=== PATIENT | female | born 1970 | race Caucasian/White ===

== ENCOUNTER 2017-04-09 17:32 | Emergency (ER) | payer OTHER ==
[~2017-04-09] VITALS: Ht 162.6 cm; Wt 81.6 kg
[~2017-04-09 17:32] MED LIST: AMOX875T PO; CHOL100013 PO; CLIN150C14 PO; HYDR-2758 PO; HYDR-971 PO
[2017-04-09 18:05] LABS: BASO # 0.1 x10^3/uL (0.0-0.2); BASO % 1 % (0-3); EOS % 2 % (0-3); HEMATOCRIT 42.9 % (36.0-47.0); HEMOGLOBIN 13.9 g/dL (12.0-15.5); LYMPH # 1.9 x10^3/uL (1.0-4.8); LYMPH % 20 % (24-48); MEAN CORPUSCULAR HEMOGLOBIN 29 pg (25-35); MEAN CORPUSCULAR HGB CONC 33 g/dL (31-37); MEAN CORPUSCULAR VOLUME 88 fL (79-100); MONO % 6 % (0-9); NEUT % 72 % (31-73); PLATELET COUNT 306 x10^3/uL (140-400); RED BLOOD COUNT 4.89 x10^6/uL (3.50-5.40); RED CELL DISTRIBUTION WIDTH 13.6 % (11.5-14.5); WHITE BLOOD COUNT 9.5 x10^3/uL (4.0-11.0)
--- NOTE | 2017-04-09 18:10 | ED.ADGEN ---
Past Medical History Past Medical History: Fibromyalgia, Hypothyroid, Other Additional Past Medical Histor: L3-L4 LUMBAR DISC HERNIA,DDD,PERICARDITIS,VIT DEF,PSORATIC ARTHRITIS Past Surgical History: Appendectomy, Cholecystectomy, , Hysterectomy, Knee Replacement, Tonsillectomy, Other Additional Past Surgical Histo: HERNIATED DISC REPAIRED,Dental,BACK,SPINAL STIMULATOR Alcohol Use: None Drug Use: None Adult General Chief Complaint Chief Complaint: CHEST WALL PAIN HPI HPI Patient is a 47 year old occasional female presents with intermittent, left- sided, costal chest pain 2 days. Pain is worse with deep breathing. She denies cough, shortness of breath, nausea or sweats. No fever chills. Eyes back pain or mechanical pain. Reports some diarrhea, denies constipation. No pain or swelling. She denies history of hypertension. She is currently on hormone replacement therapy due to as directed me. She is a nonsmoker. Review of Systems Review of Systems Review symptoms as per history of present illness. All other review symptoms are negative. Allergies Allergies Allergies Coded Allergies Type Severity Reaction Last Updated Verified diphenhydramine Allergy Intermediate AGITATION 09/26/14 Yes ketorolac Allergy Intermediate Hives 09/26/14 Yes NSAIDS (Non-Steroidal Anti-Inflamma Allergy Unknown 09/26/14 Yes midazolam Allergy Unknown 09/26/14 Yes Physical Exam Physical Exam Constitutional: Well developed, well nourished, no acute distress, non-toxic appearance. HENT: Normocephalic, atraumatic, bilateral external ears normal, oropharynx moist, no oral exudates, nose normal. Eyes: PERRLA, EOMI. Neck: Normal range of motion, no tenderness, supple. Cardiovascular:Heart rate regular rhythm, no murmur. Left anterior chest wall pain, no tenderness. Negative Homans signs. Lungs & Thorax: Bilateral breath sounds clear to auscultation. Abdomen: Bowel sounds normal, soft, no tender. Skin: Warm, dry. Back: No tenderness. Extremities: No tenderness. Neurologic: Alert and oriented X 3, normal motor function, normal sensory function, no focal deficits noted. Psychologic: Affect normal, judgement normal, mood normal. Current Patient Data Vital Signs Vital Signs Date Time Temp Pulse Resp B/P (MAP) Pulse Ox O2 Delivery O2 Flow Rate FiO2 04/09/17 19:10 72 15 109/58 (75) 95 Room Air 04/09/17 17:34 97.6 97.6 Lab Values Laboratory Tests Test 04/09/17 17:50 White Blood Count 9.5 x10^3/uL (4.0-11.0) Red Blood Count 4.89 x10^6/uL (3.50-5.40) Hemoglobin 13.9 g/dL (12.0-15.5) Hematocrit 42.9 % (36.0-47.0) Mean Corpuscular Volume 88 fL (79-100) Mean Corpuscular Hemoglobin 29 pg (25-35) Mean Corpuscular Hemoglobin Concent 33 g/dL (31-37) Red Cell Distribution Width 13.6 % (11.5-14.5) Platelet Count 306 x10^3/uL (140-400) Neutrophils (%) (Auto) 72 % (31-73) Lymphocytes (%) (Auto) 20 % (24-48) L Monocytes (%) (Auto) 6 % (0-9) Eosinophils (%) (Auto) 2 % (0-3) Basophils (%) (Auto) 1 % (0-3) Neutrophils # (Auto) 6.8 x10^3uL (1.8-7.7) Lymphocytes # (Auto) 1.9 x10^3/uL (1.0-4.8) Monocytes # (Auto) 0.5 x10^3/uL (0.0-1.1) Eosinophils # (Auto) 0.2 x10^3/uL (0.0-0.7) Basophils # (Auto) 0.1 x10^3/uL (0.0-0.2) D-Dimer (Mitra) < 0.27 ug/mlFEU Sodium Level 141 mmol/L (136-145) Potassium Level 4.1 mmol/L (3.5-5.1) Chloride Level 101 mmol/L (98-107) Carbon Dioxide Level 33 mmol/L (21-32) H Anion Gap 7 (6-14) Blood Urea Nitrogen 14 mg/dL (7-20) Creatinine 0.9 mg/dL (0.6-1.0) Estimated GFR (Cockcroft-Gault) 67.7 BUN/Creatinine Ratio 16 (6-20) Glucose Level 87 mg/dL (70-99) Calcium Level 9.9 mg/dL (8.5-10.1) Total Bilirubin 0.2 mg/dL (0.2-1.0) Aspartate Amino Transferase (AST) 22 U/L (15-37) Alanine Aminotransferase (ALT) 31 U/L (14-59) Alkaline Phosphatase 124 U/L (46-116) H Troponin I Quantitative < 0.017 ng/mL (0.000-0.055) Total Protein 8.4 g/dL (6.4-8.2) H Albumin 3.8 g/dL (3.4-5.0) Albumin/Globulin Ratio 0.8 (1.0-1.7) L Laboratory Tests 04/09/17 17:50 Laboratory Tests 04/09/17 17:50 EKG EKG [EKG: Normal sinus rhythm, rate 69, no acute ST-T wave changes, QTC 443.] Radiology/Procedures Radiology/Procedures Chest x-ray: No acute cardiopulmonary disease.] Course & Med Decision Making Course & Med Decision Making Pertinent Labs and Imaging studies reviewed. (See chart for details) [Mild nonspecific chest/upper abdominal pain. Patient with stable vitals, normal EKG, lab and imaging are unremarkable. ] Dragon Disclaimer Dragon Disclaimer This electronic medical record was generated, in whole or in part, using a voice recognition dictation system. AUNDREA LIZARRAGA DO Apr 09, 2017 18:10
[2017-04-09 18:20] LABS: CALCIUM 9.9 mg/dL (8.5-10.1); CREATININE 0.9 mg/dL (0.6-1.0); GFR 67.7; POTASSIUM 4.1 mmol/L (3.5-5.1)
[2017-04-09 18:27] LABS: ALBUMIN 3.8 g/dL (3.4-5.0); ALBUMIN/GLOBULIN RATIO 0.8 (1.0-1.7); TOTAL BILIRUBIN 0.2 mg/dL (0.2-1.0); TOTAL PROTEIN 8.4 g/dL (6.4-8.2)
[2017-04-09 19:10] VITALS: BP 109/58
--- NOTE | 2017-04-10 06:34 | EKG ---
[facility] [address] [place] [address] Test Date: 2017-04-09 Test Time: 17:41:55 Pat Name: JANUARY WHIT Department: Room: Gender: F Mail Room: : 1970 Requested By: AUNDREA LIZARRAGA Order Number: [id number] Reading MD: Jada Coleman Measurements Intervals [place] Rate: 69 P: 21 RI: 130 QRS: 0 QRSD: 90 T: 8 QT: 412 QTc: 443 Interpretive Statements SINUS RHYTHM NORMAL ECG Electronically Signed On 04-12-2017 21:08:04 CDT by Jada Coleman
--- NOTE | 2017-04-10 07:22 | RAD ---
Indication: Left-sided chest pain. Time of exam 1821 hours. Correlation is made with prior chest from 04/30/2016. The heart size is stable. The lungs are clear. The pulmonary vascularity is normal. No infiltrate, effusion or pneumothorax is seen. There appears to be a spinal stimulator in the mid thoracic spine. Impression: No acute cardiopulmonary process is detected.
== END 2017-04-09 19:30 | disposition home or self-care (01) ==
LOC: ER 17:32
DX: R07.89 Other chest pain (principal); R19.7 Diarrhea, unspecified; R10.10 Upper abdominal pain, unspecified; M79.7 Fibromyalgia; E03.9 Hypothyroidism, unspecified; M19.90 Unspecified osteoarthritis, unspecified site; Z90.49 Acquired absence of other specified parts of digestive tract; Z90.710 Acquired absence of both cervix and uterus; Z96.659 Presence of unspecified artificial knee joint; Z88.6 Allergy status to analgesic agent; Z88.4 Allergy status to anesthetic agent; Z88.8 Allergy status to other drugs, medicaments and biological substances
CPT/HCPCS: 36415; 71010; 80053; 84484; 85027; 85379; 93005; 99285-25